=== PATIENT | female | born 1950 | race Caucasian/White ===

== ENCOUNTER 2019-09-10 10:51 | Emergency (ER) | payer MEDICARE, SELFPAY ==
--- NOTE | 2019-09-10 10:58 | ED.URI ---
HPI - URI/Sore Throat General Chief Complaint: Upper Respiratory Infection Stated Complaint: sore throat Time Seen by Provider: 09/10/19 11:38 Source: patient and RN notes reviewed Mode of arrival: ambulatory Limitations: no limitations History of Present Illness HPI Narrative: 69-year-old female presents with concern for losing her voice . Reports she has had seasonal allergies, causing increased cough. Reports forceful coughing and subsequent sore throat. Report sore throat resolved, however her voice is still hoarse. Reports hoarse voice for the past 2 to 3 days. Denies any current sore throat, fever, headache, nausea, malaise, body aches. MD elicited complaint: other (Hoarse voice) Related Data Home Medications Medication Instructions Recorded Confirmed albuterol sulfate [ProAir HFA] 2 puff INHALATION QID PRN 09/10/19 09/10/19 bupropion HCl 150 mg PO QAM 09/10/19 09/10/19 fluticasone propion-salmeterol 1 inh INHALATION Q12H 09/10/19 09/10/19 [Wixela Inhub] lisinopril 10 mg PO DAILY 09/10/19 09/10/19 simvastatin 20 mg PO DAILY 09/10/19 09/10/19 tiotropium bromide [Spiriva 2 puff INHALATION DAILY 09/10/19 09/10/19 Respimat] Allergies Allergy/AdvReac Type Severity Reaction Status Date / Time No Known Allergies Allergy Verified 09/10/19 11:21 Review of Systems Review of Systems: Narrative: CONSTITUTIONAL: Denies malaise, chills, sweats, or fever. EYES: Denies visual changes, redness, or discharge. ENT: Reports rhinorrhea hoarse voice. Denies congestion, sinus pain, otalgia and sore throat. CARDIOVASCULAR: Denies chest pain, palpitations, or edema. RESPIRATORY: Denies cough or dyspnea. GASTROINTESTINAL: Denies abdominal pain, nausea, vomiting, diarrhea SKIN: Denies rash or itching. MUSCULOSKELETAL: Denies myalgia. NEUROLOGIC: Denies headache. All systems reviewed & are unremarkable except as noted in HPI and below PMFSH Family History Family History (Updated 10/31/16 @ 12:17 by DOCTOR UNKNOWN) Mother Patient's mother is Father Patient's father is Other Family history of primary malignant neoplasm of liver Social History Social History Smoking status: Former smoker Second hand tobacco smoke exposure: No Smoking end date: 02/26/15 Alcohol intake: current Comments At time of signature, agree with nursing past medical, surgical, social and family history. There is no relevant family history pertinent to the presenting complaint Exam Narrative: Exam Narrative: GENERAL: Well-appearing, well-nourished, and in no acute distress. HEAD: Normocephalic EYES: PERRLA, conjunctivae clear ENT: Nares clear, turbinates erythematous, clear discharge. Mucous membranes moist. TM pearly robbins with dull light reflex bilaterally; no tragal tenderness. Oropharynx mildly erythematous without lesions. Tonsils not enlarged and without exudate, no drooling, no hoarseness, no trismus, uvula midline. NECK: Supple. No lymphadenopathy CHEST: Clear to auscultation, breath sounds equal. No wheezing, rhonchi, rales, or stridor. No respiratory distress, speaks in full sentences. HEART: Regular rate and rhythm. No murmur heard. SKIN: Warm, dry, no rash. NEURO: Alert and oriented x3. PSYCH: Normal mood and affect Course Course Emergency Course: Patient is aware of diagnosis, understands and agrees to treatment plan. Anticipatory guidance given. Patient agrees to follow-up as directed and is aware of reasons to seek care at the emergency department. Portions of this record may have been created with voice recognition software Vital Signs Vital signs: Vital Signs Temperature 98.0 F 09/10/19 11:08 Pulse Rate 110 H 09/10/19 11:08 Respiratory Rate 18 09/10/19 11:08 Blood Pressure 111/71 09/10/19 11:08 Pulse Oximetry 96 09/10/19 11:08 Temperature 98.0 F 09/10/19 11:08 Pulse Rate 110 H 09/10/19 11:08 Respiratory Rate 18 09/10/19 11:08 Blood Pressure
[2019-09-10 11:08] VITALS: BP 111/71; PULSE 110; RESP 18; TEMP 36.7; O2SAT 96
== END 2019-09-10 12:00 | disposition home or self-care (01) ==
PROVIDERS: Emergency Provider Nurse Practitioner; PCP Physician Assistant
DX: J04.0 Acute laryngitis (principal); Z87.891 Personal history of nicotine dependence; E78.00 Pure hypercholesterolemia, unspecified; I10 Essential (primary) hypertension; J44.9 Chronic obstructive pulmonary disease, unspecified
CPT/HCPCS: 87081; 87880; 99203; G0463